=== PATIENT | male | born 1930 | race Caucasian/White ===

== ENCOUNTER 2016-06-07 12:47 | Inpatient (IN) | payer OTHER ==
[~2016-06-07] VITALS: Ht 172.7 cm; Wt 86.4 kg
[~2016-06-07 12:47] MED LIST: AMIODARONE HCL200 MG PO; ASPIR 8181 M1 PO; ASPIRIN81 M1 PO; BUDEPRION SR150 MG PO; BUPROBAN150 MG PO; CEFTIN500 MG PO; CHLORASEPTIC177 ML MM; CLOTRIMAZOLE10 MG PO; COQ-10100 MG PO; CORDARONE200 MG PO; CYANOCOBALAM1000 MCG PO; Ceftin PO; Colace PO; Dulcolax PO; FISH OIL 1,0001 EAC7 PO; FOLIC ACID1 MG PO; Folvite PO; LISINOPRIL10 MG PO; Levothroid,Synthroid PO; METHOTREXATE2.5 MG PO; METOPROLOL TART50 MG PO; NEXIUM40 MG PO; Nitrostat,NitroQuick SL; OCUVITE PRESER1 EACH PO; OCUVITE TABLET1 EACH PO; OMEPRAZOLE40 M1 PO; Ocuvite PO; Oyst-Cal D, Oscal W/ PO; PACERONE200 M1 PO; PRAVACHOL40 MG PO; PRAVASTATIN SOD40 MG PO; PRAVASTATIN SOD80 MG PO; Pravachol PO; PriLOSEC PO; SUPER MULTIVIT1 EACH PO; SYNTHROID100 MCG PO; THERAGRAN1 TABLET PO; TOPROL XL50 MG PO; TYLENOL REGULA325 MG PO; Tylenol Extra Streng PO; VITAMIN D250000 UNIT PO; VITAMIN D5000 UNIT PO; VITAMIN D50000 UNI1 PO; Vitamin D PO; WARFARIN SODIUM5 MG PO; WELLBUTRIN XL150 MG PO; Wellbutrin XL PO; ZANTAC300 MG PO; ZESTRIL,PRINIVI10 M1 PO; ZESTRIL,PRINIVI10 MG PO; ZITHROMAX500 MG PO; ZOFRAN ODT4 MG PO; ZYBAN 150 MG T150 MG PO
[2016-06-07 13:39] LABS: HEMATOCRIT 35.2 % (38.0-50.0); MCH 32.5 PG (29.0-34.0); MCHC 32.7 G/DL (30.0-36.0); MCV 99.4 FL (86-99); MEAN PLAT.VOLUME 9.9 uM^3 (9.0-12.4); PLATELET COUNT 124 K/uL (156-360); RBC DIS.WIDTH-SD 48.9 % (39-53); RED BLOOD COUNT 3.54 M/uL (4.00-5.50); WHITE BLOOD COUNT 11.7 K/uL (4.1-10.2)
[2016-06-07 13:48] LABS: CHLORIDE 111 mEq/L (99-109); POTASSIUM 4.9 mEq/L (3.7-5.4); SODIUM 142 mEq/L (136-147)
[2016-06-07 13:50] LABS: GLUCOSE 151 mg/dL (70-99)
[2016-06-07 13:51] LABS: ANION GAP 9 MEQ/L (2-14)
[2016-06-07 13:54] LABS: GFR ESTIMATE (CALCULATED) 56 mL/min/; UREA NITROGEN (BUN) 26 mg/dL (9-23)
[2016-06-07 15:24] LABS: EOSINOPHIL (%) 0.8 % (0-5); EOSINOPHIL COUNT 0.1 K/uL (0-0.3); HEMATOCRIT 33.6 % (38.0-50.0); IMMATURE GRANULOCYTE (%) 0.2 % (0.0-0.7); IMMATURE GRANULOCYTE COUNT 0.2 K/uL; LYMPHOCYTE COUNT 0.8 K/uL (1.0-2.8); MCH 32.8 PG (29.0-34.0); MCHC 32.7 G/DL (30.0-36.0); MCV 100.3 FL (86-99); MEAN PLAT.VOLUME 9.5 uM^3 (9.0-12.4); MONOCYTE (%) 9.3 % (3-12); MONOCYTE COUNT 0.9 K/uL (0-0.8); NEUTROPHIL (%) 81.4 % (45-76); NEUTROPHIL COUNT 8.1 K/uL (1.8-6.4); PLATELET COUNT 116 K/uL (156-360); RBC DIS.WIDTH-SD 49.2 % (39-53); RED BLOOD COUNT 3.35 M/uL (4.00-5.50)
[2016-06-07 15:34] LABS: INTER. NORMALIZED RATIO 1.1; PROTHROMBIN TIME 11.6 (9.2-11.2); PTT 26.3 (25-32)
[2016-06-07 15:41] LABS: TOTAL BILIRUBIN 0.5 mg/dL (0.0-1.0)
[2016-06-07 15:42] LABS: ALKALINE PHOSPHATASE 59 IU/L (3-129)
[2016-06-07 15:44] LABS: DIRECT BILIRUBIN 0.2 mg/dL (0.0-0.3)
[2016-06-07 15:45] LABS: LIPASE 21 U/L (1.0-51.0)
[2016-06-07 15:46] LABS: TROP-I INTERPRETATION NEGATIVE; TROPONIN-I 0.02 ng/mL (0.0-0.30)
[2016-06-07 16:01] LABS: BILIRUBIN NEGATIVE; BLOOD NEGATIVE; COLOR YELLOW ((YELLOW)); GLUCOSE (STRIP) NEGATIVE; KETONES NEGATIVE; LEUKOCYTES NEGATIVE; NITRITE NEGATIVE; PROTEIN (STRIP) NEGATIVE; SPECIFIC GRAVITY 1.016 (1.000-1.030); UROBILINOGEN 0.2 MG/DL (0.2-1.0)
[2016-06-07 16:05] LABS: INFLUENZA A VIRAL ANTIGEN NEGATIVE; INFLUENZA B VIRAL ANTIGEN NEGATIVE
[2016-06-07 16:08] LABS: ADD MIUA? NO; UCUL ADDED? NO
[2016-06-07 19:00] VITALS: BP 118/66
[2016-06-07 19:45] VITALS: BP 135/78
[2016-06-07] MEDS ORDERED: OCUVITE LUTEIN1 EAC2 PO (19:56)
[2016-06-07] MEDS ORDERED: TYLENOL EXTRA500 MG PO (19:57)
[2016-06-07 20:13] VITALS: BP 157/79
[2016-06-07 22:50] VITALS: BP 144/63
[2016-06-08 03:14] VITALS: BP 120/62
[2016-06-08 07:33] LABS: ANION GAP 5 MEQ/L (2-14); CHLORIDE 110 MEQ/L (99-109); GFR ESTIMATE (CALCULATED) > 59 mL/min/; GLUCOSE 83 mg/dL (70-99); POTASSIUM 4.8 MEQ/L (3.7-5.4); SAMPLE HEMOLYSIS CHECK 0; SAMPLE ICTERIC CHECK 0; SAMPLE LIPEMIA CHECK 0; SODIUM 140 MEQ/L (136-147); UREA NITROGEN (BUN) 23 mg/dL (9-23)
[2016-06-08 08:32] VITALS: BP 137/76
[2016-06-08 11:41] VITALS: BP 121/74
[2016-06-08 16:10] VITALS: BP 153/95
[2016-06-08 19:24] VITALS: BP 165/81
[2016-06-08 22:59] VITALS: BP 157/81
[2016-06-09 03:13] VITALS: BP 155/89
[2016-06-09 08:09] VITALS: BP 140/88
[2016-06-09 11:21] VITALS: BP 160/86
[2016-06-09] MEDS ORDERED: DOXYCYCLINE HY100 MG PO (12:44)
== END 2016-06-09 14:03 | disposition home or self-care (01) | DRG 195 ==
LOC: EXP 12:47 → EME 12:47 → 5EAST 17:00 → EDOF 17:00 → 5EAST 19:59
PROVIDERS: Family Medicine; Nurse Practitioner Family
DX: J18.9 Pneumonia, unspecified organism (principal); I48.91 Unspecified atrial fibrillation; M06.9 Rheumatoid arthritis, unspecified; I12.9 Hypertensive chronic kidney disease with stage 1 through stage 4 chronic kidney disease, or unspecified chronic kidney disease; E78.5 Hyperlipidemia, unspecified; I25.10 Atherosclerotic heart disease of native coronary artery without angina pectoris; R73.9 Hyperglycemia, unspecified; E03.9 Hypothyroidism, unspecified; K21.9 Gastro-esophageal reflux disease without esophagitis; E55.9 Vitamin D deficiency, unspecified; N18.9 Chronic kidney disease, unspecified; M54.5 Low back pain; R09.02 Hypoxemia; Z85.51 Personal history of malignant neoplasm of bladder; Z95.0 Presence of cardiac pacemaker; Z95.1 Presence of aortocoronary bypass graft; Z96.651 Presence of right artificial knee joint; Z96.643 Presence of artificial hip joint, bilateral; Z95.2 Presence of prosthetic heart valve
CPT/HCPCS: 70450; 71020; 80048; 80076; 81003; 83605; 83690; 84484; 85025; 85027; 85610; 85730; 87040; 87502; 93005; 99202; J0456; J0696; J7050

== ENCOUNTER 2016-12-09 09:09 | Emergency (ER) | payer OTHER ==
[~2016-12-09] VITALS: Ht 172.7 cm; Wt 81.8 kg
[~2016-12-09 09:09] MED LIST changes: +DOXYCYCLINE HY100 MG PO; +OCUVITE LUTEIN1 EAC2 PO; +TYLENOL EXTRA500 MG PO
[2016-12-09 11:26] LABS: EOSINOPHIL (%) 6.5 % (0-5); EOSINOPHIL COUNT 0.3 K/uL (0-0.3); HEMATOCRIT 32.6 % (38.0-50.0); IMMATURE GRANULOCYTE (%) 0.4 % (0.0-0.7); INSTRUMENT ABS NEUTROPHIL CT 3.1 K/uL; LYMPHOCYTE COUNT 0.6 K/uL (1.0-2.8); MCH 32.3 PG (29.0-34.0); MCHC 32.8 G/DL (30.0-36.0); MCV 98.5 FL (86-99); MEAN PLAT.VOLUME 10.1 uM^3 (9.0-12.4); MONOCYTE (%) 16.3 % (3-12); MONOCYTE COUNT 0.8 K/uL (0-0.8); NEUTROPHIL (%) 63.8 % (45-76); NEUTROPHIL COUNT 3.1 K/uL (1.8-6.4); PLATELET COUNT 97 K/uL (156-360); RBC DIS.WIDTH-CV 13.7 % (11.8-14.6); RBC DIS.WIDTH-SD 49.3 % (39-53); RED BLOOD COUNT 3.31 M/uL (4.00-5.50); WHITE BLOOD COUNT 4.9 K/uL (4.1-10.2)
[2016-12-09 11:34] LABS: CHLORIDE 105 mEq/L (99-109); POTASSIUM 5.1 mEq/L (3.7-5.4); SODIUM 139 mEq/L (136-147)
[2016-12-09 11:36] LABS: GLUCOSE 101 mg/dL (70-99)
[2016-12-09 11:37] LABS: ANION GAP 9 MEQ/L (2-14)
[2016-12-09 11:38] LABS: TOTAL BILIRUBIN 0.4 mg/dL (0.0-1.0)
[2016-12-09 11:39] LABS: ALKALINE PHOSPHATASE 71 IU/L (3-129)
[2016-12-09 11:40] LABS: GFR ESTIMATE (CALCULATED) 47 mL/min/
[2016-12-09 11:41] LABS: UREA NITROGEN (BUN) 35 mg/dL (9-23)
[2016-12-09 11:45] LABS: TROP-I INTERPRETATION NEGATIVE; TROPONIN-I < 0.01 ng/mL (0.0-0.30)
[2016-12-09 11:53] LABS: ADD MIUA? YES; BILIRUBIN NEGATIVE; BLOOD LARGE; COLOR YELLOW ((YELLOW)); GLUCOSE (STRIP) NEGATIVE; KETONES NEGATIVE; LEUKOCYTES NEGATIVE; NITRITE NEGATIVE; PROTEIN (STRIP) 30; SPECIFIC GRAVITY 1.016 (1.000-1.030)
[2016-12-09 12:05] LABS: BACTERIA NONE SEEN /HPF; CALCIUM OXALATE CRYSTALS 2+ /HPF; EPITHELIAL CELLS NONE SEEN /HPF; MUCUS NONE SEEN /LPF; RED BLOOD CELLS TNTC /HPF (0-5); UCUL ADDED? YES
[2016-12-09 14:06] LABS: TROP-I INTERPRETATION NEGATIVE; TROPONIN-I < 0.01 ng/mL (0.0-0.30)
[2016-12-09] MEDS ORDERED: CIPRO500 MG PO (14:29)
[2016-12-09 15:05] VITALS: BP 154/88
== END 2016-12-09 15:05 | disposition home or self-care (01) ==
LOC: EME 09:09
PROVIDERS: Emergency Medicine
DX: N39.0 Urinary tract infection, site not specified (principal); E78.5 Hyperlipidemia, unspecified; Z87.442 Personal history of urinary calculi; Z86.73 Personal history of transient ischemic attack (TIA), and cerebral infarction without residual deficits; Z95.1 Presence of aortocoronary bypass graft; Z98.61 Coronary angioplasty status
CPT/HCPCS: 71010; 80053; 81003; 84484; 85025; 87086; 93005; 99281; 99284

== ENCOUNTER 2016-12-17 16:02 | Emergency (ER) | payer OTHER ==
[~2016-12-17] VITALS: Ht 172.7 cm; Wt 81.8 kg
[~2016-12-17 16:02] MED LIST changes: +CIPRO500 MG PO
[2016-12-17 16:37] LABS: ADD MIUA? YES; BILIRUBIN NEGATIVE; BLOOD MODERATE; COLOR YELLOW ((YELLOW)); GLUCOSE (STRIP) NEGATIVE; KETONES NEGATIVE; LEUKOCYTES NEGATIVE; NITRITE NEGATIVE; PROTEIN (STRIP) 30; SPECIFIC GRAVITY 1.021 (1.000-1.030); UROBILINOGEN 0.2 MG/DL (0.2-1.0)
[2016-12-17 16:41] LABS: BACTERIA NONE SEEN /HPF; EPITHELIAL CELLS RARE /HPF; HYALINE CASTS 0-5 /LPF; MUCUS NONE SEEN /LPF; RED BLOOD CELLS TNTC /HPF (0-5); UCUL ADDED? YES; WHITE BLOOD CELLS 0-5 /HPF (0-5)
[2016-12-17 16:53] LABS: EOSINOPHIL (%) 3.9 % (0-5); EOSINOPHIL COUNT 0.3 K/uL (0-0.3); HEMATOCRIT 33.8 % (38.0-50.0); IMMATURE GRANULOCYTE (%) 0.1 % (0.0-0.7); INSTRUMENT ABS NEUTROPHIL CT 6.3 K/uL; LYMPHOCYTE COUNT 0.6 K/uL (1.0-2.8); MCH 33.1 PG (29.0-34.0); MCHC 33.4 G/DL (30.0-36.0); MCV 99.1 FL (86-99); MEAN PLAT.VOLUME 9.1 uM^3 (9.0-12.4); MONOCYTE (%) 7.7 % (3-12); MONOCYTE COUNT 0.6 K/uL (0-0.8); NEUTROPHIL (%) 80.7 % (45-76); NEUTROPHIL COUNT 6.3 K/uL (1.8-6.4); PLATELET COUNT 111 K/uL (156-360); RBC DIS.WIDTH-CV 14.1 % (11.8-14.6); RBC DIS.WIDTH-SD 50.9 % (39-53); RED BLOOD COUNT 3.41 M/uL (4.00-5.50); WHITE BLOOD COUNT 7.8 K/uL (4.1-10.2)
[2016-12-17 17:17] LABS: CHLORIDE 107 mEq/L (99-109); POTASSIUM 4.9 mEq/L (3.7-5.4); SODIUM 138 mEq/L (136-147)
[2016-12-17 17:19] LABS: GLUCOSE 111 mg/dL (70-99)
[2016-12-17 17:20] LABS: ANION GAP 9 MEQ/L (2-14)
[2016-12-17 17:22] LABS: GFR ESTIMATE (CALCULATED) 51 mL/min/
[2016-12-17 17:23] LABS: UREA NITROGEN (BUN) 28 mg/dL (9-23)
[2016-12-17 18:12] VITALS: BP 133/55
== END 2016-12-17 18:13 | disposition home or self-care (01) ==
LOC: EME 16:02
DX: N39.0 Urinary tract infection, site not specified (principal); R50.9 Fever, unspecified; E78.5 Hyperlipidemia, unspecified; Z85.51 Personal history of malignant neoplasm of bladder; Z86.73 Personal history of transient ischemic attack (TIA), and cerebral infarction without residual deficits; Z95.2 Presence of prosthetic heart valve; Z95.1 Presence of aortocoronary bypass graft; Z98.61 Coronary angioplasty status; Z95.0 Presence of cardiac pacemaker; Z87.442 Personal history of urinary calculi; Z96.641 Presence of right artificial hip joint; Z79.82 Long term (current) use of aspirin
CPT/HCPCS: 71020; 80048; 81003; 83605; 85025; 87086; 99281; 99284

== ENCOUNTER 2017-03-28 00:42 | Inpatient (IN) | payer OTHER ==
[~2017-03-28] VITALS: Ht 172.7 cm; Wt 80.8 kg
[2017-03-28] VITALS (20 sets, daily range): BP systolic 120–166; BP diastolic 69–103
[2017-03-28 02:46] LABS: HEMATOCRIT 32.9 % (38.0-50.0); MCH 33.2 PG (29.0-34.0); MCHC 32.2 G/DL (30.0-36.0); MCV 103.1 FL (86-99); MEAN PLAT.VOLUME 9.8 uM^3 (9.0-12.4); PLATELET COUNT 128 K/uL (156-360); RBC DIS.WIDTH-CV 14.1 % (11.8-14.6); RBC DIS.WIDTH-SD 53.9 % (39-53); RED BLOOD COUNT 3.19 M/uL (4.00-5.50)
[2017-03-28 02:51] LABS: PROTHROMBIN TIME 11.9 SEC (10.2-12.9)
[2017-03-28 02:54] LABS: PTT 28.9 SEC (25-37)
[2017-03-28 02:55] LABS: CHLORIDE 111 mEq/L (99-109); POTASSIUM 5.1 mEq/L (3.7-5.4); SODIUM 142 mEq/L (136-147)
[2017-03-28 02:57] LABS: GLUCOSE 125 mg/dL (70-99)
[2017-03-28 02:58] LABS: ANION GAP 8 MEQ/L (2-14)
[2017-03-28 03:01] LABS: GFR ESTIMATE (CALCULATED) 56 mL/min/
[2017-03-28 03:02] LABS: UREA NITROGEN (BUN) 23 mg/dL (9-23)
[2017-03-28 07:36] LABS: METH RESISTANT S AUREUS PCR NEGATIVE (NEGATIVE)
[2017-03-28 07:47] LABS: PROBE CHECK PASS; SPECIMEN PROCESSING CONTROL PASS
[2017-03-28] MEDS ORDERED: FLOMAX0.4 MG PO (12:03)
[2017-03-29] VITALS (23 sets, daily range): BP systolic 114–175; BP diastolic 61–93
[2017-03-29 04:48] LABS: HEMATOCRIT 31.6 % (38.0-50.0); MCH 33.2 PG (29.0-34.0); MCHC 33.5 G/DL (30.0-36.0); MEAN PLAT.VOLUME 9.7 uM^3 (9.0-12.4); PLATELET COUNT 118 K/uL (156-360); RBC DIS.WIDTH-CV 13.6 % (11.8-14.6); RBC DIS.WIDTH-SD 49.3 % (39-53); RED BLOOD COUNT 3.19 M/uL (4.00-5.50)
[2017-03-29 04:49] LABS: MCV 99.1 FL (86-99)
[2017-03-29 05:00] LABS: CHLORIDE 106 mEq/L (99-109); POTASSIUM 4.1 mEq/L (3.7-5.4); SODIUM 135 mEq/L (136-147)
[2017-03-29 05:02] LABS: GLUCOSE 118 mg/dL (70-99)
[2017-03-29 05:04] LABS: ANION GAP 10 MEQ/L (2-14)
[2017-03-29 05:07] LABS: UREA NITROGEN (BUN) 14 mg/dL (9-23)
[2017-03-29 05:16] LABS: GFR ESTIMATE (CALCULATED) > 59 mL/min/ (58.99-99999)
[2017-03-29 05:19] LABS: INTER. NORMALIZED RATIO 1.1; PROTHROMBIN TIME 12.9 SEC (10.2-12.9)
[2017-03-29 05:22] LABS: PTT 27.5 SEC (25-37)
[2017-03-30] VITALS (23 sets, daily range): BP systolic 91–183; BP diastolic 57–116
[2017-03-31] VITALS (12 sets, daily range): BP systolic 142–182; BP diastolic 79–118
[2017-03-31 04:51] LABS: CHLORIDE 106 mEq/L (99-109); POTASSIUM 3.6 mEq/L (3.7-5.4); SODIUM 132 mEq/L (136-147)
[2017-03-31 04:52] LABS: GLUCOSE 115 mg/dL (70-99)
[2017-03-31 04:54] LABS: ANION GAP 10 MEQ/L (2-14)
[2017-03-31 04:56] LABS: GFR ESTIMATE (CALCULATED) > 59 mL/min/ (58.99-99999)
[2017-03-31 04:57] LABS: UREA NITROGEN (BUN) 21 mg/dL (9-23)
[2017-04-01 04:27] VITALS: BP 150/90
[2017-04-01 08:35] VITALS: BP 102/68
[2017-04-01 12:36] VITALS: BP 158/75
[2017-04-01 16:50] VITALS: BP 120/62
[2017-04-01 23:23] VITALS: BP 170/86
[2017-04-02 05:52] VITALS: BP 175/110
[2017-04-02 08:11] VITALS: BP 185/86
[2017-04-02 16:30] VITALS: BP 134/84
[2017-04-02 23:37] VITALS: BP 175/79
[2017-04-03 08:16] VITALS: BP 154/91
[2017-04-03 15:42] VITALS: BP 169/86
== END 2017-04-03 17:15 | disposition hospice, home (50) | DRG 83 ==
LOC: EME 00:42 → EDOF 03:54 → ENRESERV 03:54 → 4WEST 03:54 → ENRESERV 05:22 → 4WEST 05:56 → ENRESERV 03-31 13:09 → 3EAST 03-31 16:25
PROVIDERS: Emergency Medicine; Internal Medicine Critical Care Medicine; Surgery
DX: S06.2X6A Diffuse traumatic brain injury with loss of consciousness greater than 24 hours without return to pre-existing conscious level with patient surviving, initial encounter (principal); S06.6X6A Traumatic subarachnoid hemorrhage with loss of consciousness greater than 24 hours without return to pre-existing conscious level with patient surviving, initial encounter; W01.0XXA Fall on same level from slipping, tripping and stumbling without subsequent striking against object, initial encounter; Y92.009 Unspecified place in unspecified non-institutional (private) residence as the place of occurrence of the external cause; G81.94 Hemiplegia, unspecified affecting left nondominant side; R40.2412 Glasgow coma scale score 13-15, at arrival to emergency department; G20 Parkinson's disease; F02.80 Dementia in other diseases classified elsewhere, unspecified severity, without behavioral disturbance, psychotic disturbance, mood disturbance, and anxiety; F05 Delirium due to known physiological condition; D69.1 Qualitative platelet defects; T39.015A Adverse effect of aspirin, initial encounter; T39.395A Adverse effect of other nonsteroidal anti-inflammatory drugs [NSAID], initial encounter; D63.8 Anemia in other chronic diseases classified elsewhere; I12.9 Hypertensive chronic kidney disease with stage 1 through stage 4 chronic kidney disease, or unspecified chronic kidney disease; N18.3 Chronic kidney disease, stage 3 (moderate); I48.2 Chronic atrial fibrillation; Z66 Do not resuscitate; Z51.5 Encounter for palliative care; E03.9 Hypothyroidism, unspecified; E78.5 Hyperlipidemia, unspecified; M06.9 Rheumatoid arthritis, unspecified; K21.9 Gastro-esophageal reflux disease without esophagitis; K44.9 Diaphragmatic hernia without obstruction or gangrene; I25.10 Atherosclerotic heart disease of native coronary artery without angina pectoris; Z86.73 Personal history of transient ischemic attack (TIA), and cerebral infarction without residual deficits; Z85.51 Personal history of malignant neoplasm of bladder; Z95.1 Presence of aortocoronary bypass graft; Z95.2 Presence of prosthetic heart valve; Z79.82 Long term (current) use of aspirin; Z96.641 Presence of right artificial hip joint; Z96.659 Presence of unspecified artificial knee joint
CPT/HCPCS: 70450; 71010; 72125; 80048; 85027; 85610; 85730; 87641; 92523 GN; 92610 GN; 93005; 97530 GO; 97530 GP; 99281; 99285; J0360; J1953; J7030; J7050; S0028